=== PATIENT | male | born 1930 | race Caucasian/White ===

== ENCOUNTER → 2016-06-14 | Outpatient (CLI) | payer MEDICARE, BC ==
[~2016-06-14] MED LIST: ASPIRIN; ASPIRIN81 M2 PO; CALCIUM 5001 TAB PO; CARVEDILOL6.25 MG PO; CLARITIN10 MG PO; CO-Q 10; CRESTOR; DETROL LA2 MG PO; DULCOLAX5 MG PO; DURAGESIC1 EACH TD; DYNACIN100 MG PO; ECOTRIN81 M1 PO; FISH OIL 1,0001 CAP; FISH OIL 1,0001 EACH PO; FISH OIL 1,001000 M1 PO; FISH OIL 1,2001 CAP PO; FLOMAX0.4 M1 PO; FLONASE 0.05% N16 G1; HYDROCODON-ACE1 EAC5 PO; LASIX20 MG PO; LESCOL XL80 MG PO; LINEZOLID600 MG PO; LORTAB 5/500 TA1 TA1 PO; LORTAB 5/500 TA1 TA2 PO; METOPROLOL TAR25 MG PO; MILK OF MAGNESIA PO; MINOCYCLINE HC100 M1 PO; NORVASC PO; OS-CAL 500500 MG PO; PLAVIX; POTASSIUM CHLO10 ME1 PO; PROAMATINE10 MG PO; SLOW RELEASE I142 M1 PO; TOPROL XL; VITAMIN B125000 MCG PO; VITAMIN D35000 UNI1 PO; ZOCOR-BORROW, D10 MG PO; ZOFRAN PO
--- NOTE | ~2016-06-14 | US77 ---
[facility] A Service of [facility] RADIOLOGY TEXT RESULTS PATIENT: AASHISH DUBON LOCATION: CGUS : 29 UNIT #: [id number] AGE: [address]: Argentina Phillips MD SEX: M ORDER DR: [id number] [facility] [address] [facility] [place], [place] [address] [id number] O MR#: [id number] Acc #: [id number] NAME: AASHISH DUBON : 1930 SEX: M STUDY DATE/TIME: 06/14/2016 14:32 UNIT: [facility]US ROOM: STUDY DESCRIPTION: US Kidney Bilateral Complete Attending Physician: Argentina Phillips M.D. Referring Physician: Argentina Phillips M.D. Ordering Physician: Argentina Phillips M.D. Primary Care Physician: Adolfo Gaitan M.D. MEDICAL IMAGING REPORT This report is preliminary unless electronic signature is present EXAM Renal ultrasound bilateral 06/14/2016 INDICATIONS 85-year-old male with chronic renal disease. BUN 30, creatinine 2.1, GFR 28. TECHNIQUE Sonographic imaging of the kidneys was performed bilaterally. Correlation is made with noncontrast abdomen and pelvis CT from 06/13/2015 FINDINGS Exam is degraded by patient functional status and lack of ability to fully cooperate standard technique. Limited imaging of the kidneys was obtained. The right kidney measures approximately 6.8 x 3.4 x 3.5 cm and the left 9.7 x 4.6 x 4.0 cm. No hydronephrosis or shadowing stone on either side. In the midpole region of the right kidney, there is a probable benign cyst measuring about 1.4 x 1.1 cm. Due to its small size and technical factors there are faint internal echoes within the lumen but this is favored to represent a benign cyst and appears to correspond to a probably benign cyst on the patient's CT measuring about 1.3 cm. Left kidney unremarkable. Bladder unremarkable. IMPRESSION 1. No hydronephrosis or shadowing stone on either kidney. 2. Probably benign cyst in the anterior midpole right kidney measures 1.4 cm. This can be reevaluated in 6-12 months with a repeat ultrasound to reassess stability. 3. Bladder unremarkable. Dictated by... [facility] A Service of [facility] RADIOLOGY TEXT RESULTS PATIENT: AASHISH DUBON LOCATION: [facility] : 29 UNIT #: [id number] AGE: [address]: Argentina Phillips MD SEX: M ORDER DR: Jayson Quintana M.D. THIS IS AN ELECTRONICALLY VERIFIED REPORT Jayson Quintana M.D. at 06/15/2016 3:23 PM Juju TD: 06/15/2016 11:00 JOB #: [id number] MEDICAL IMAGING REPORT COPY
== END | disposition home or self-care (01) ==
LOC: CGUS 13:55
DX: N18.9 Chronic kidney disease, unspecified (principal); R93.421 Abnormal radiologic findings on diagnostic imaging of right kidney
CPT/HCPCS: 76770